=== PATIENT | female | born 1965 | race Two or more races ===

== ENCOUNTER 2017-11-16 14:45 | Outpatient (CLI) | payer OTHER | END 2017-11-16 23:59 | disposition home or self-care (01) | LOC: WOU 14:45 | PROVIDERS: ATTEND Surgery | DX: T81.89XA Other complications of procedures, not elsewhere classified, initial encounter (principal); E66.9 Obesity, unspecified; Z68.32 Body mass index [BMI] 32.0-32.9, adult; S39.92XA Unspecified injury of lower back, initial encounter; W19.XXXA Unspecified fall, initial encounter; I10 Essential (primary) hypertension; F41.8 Other specified anxiety disorders; S30.0XXS Contusion of lower back and pelvis, sequela; L98.412 Non-pressure chronic ulcer of buttock with fat layer exposed | CPT/HCPCS: 99205; A6402; G0463 ==

== ENCOUNTER 2021-03-12 18:10 | Emergency (ER) | payer OTHER ==
[~2021-03-12] VITALS: Ht 170.2 cm; Wt 97.1 kg
[2021-03-12] MEDS ORDERED: MECLIZINE HCL 25 MG TABLET ONE (18:22)
[2021-03-12] MEDS ORDERED: IV NS 0.9% 1,000 ML BAG IV ONE (18:30)
[2021-03-12] MEDS ORDERED: MECLIZINE HCL 12.5 MG TABLET PO ONE (18:30)
[2021-03-12 18:39] LABS: BASOPHILS # (AUTO) 0.1 K/uL (0.0-0.2); EOSINOPHILS % (AUTO) 1.1 % (0.0-6.0); HEMATOCRIT 47 % (33-45); HEMOGLOBIN 15.8 g/dL (11.5-14.8); LYMPHOCYTES # (AUTO) 4.6 K/uL (0.8-4.8); LYMPHOCYTES % (AUTO) 37.2 % (20.0-44.0); MEAN CORPUSCULAR HGB CONC 34 g/dl (31.0-36.0); MEAN CORPUSCULAR VOLUME 92 fL (82-100); MONOCYTES # (AUTO) 0.7 K/uL (0.1-1.30); MONOCYTES % (AUTO) 5.5 % (2.0-12.0); NEUTROPHILS # (AUTO) 6.9 K/uL (1.8-8.9); NEUTROPHILS % (AUTO) 55.2 % (43.0-81.0); PLATELET COUNT (AUTO) 524 K/uL (150-450); RED BLOOD CELL COUNT(AUTO) 5.14 MIL/uL (4.0-5.2); WHITE BLOOD COUNT (AUTO) 12.4 K/uL (4.3-11.0)
[2021-03-12 18:47] LABS: CALCIUM, SERUM 9.5 mg/dL (8.5-10.1); CARBON DIOXIDE 26 mmol/L (21-32); CHLORIDE 97 mmol/L (98-107); GLUCOSE 247 mg/dL (74-106); POTASSIUM 4.1 mmol/L (3.5-5.1); SODIUM SERUM 136 mmol/L (136-145); UREA NITROGEN, BLOOD 37 mg/dL (7-18)
--- NOTE | 2021-03-12 18:56 | NUR ---
Patient bibra, c/o dizziness. On room air, breathing evenly and unlabored. Connected to the monitor and pulse ox. kept comfortable, will continue to monitor accordingly.
[2021-03-12 20:06] LABS: ABG PCO2 39.9 mmHg (35.0-45.0); ABG PH 7.392 (7.350-7.450); ABG PO2 68.1 mmHg (75.0-100.0); AaDO2 33.9 mmHg; COHb 1.8 % (0.5-1.5); MetHb 0.3 % (0.0-1.5); SITE, ABG Right Radial; VENT MODE, BG ROOM AIR
[2021-03-12 20:45] VITALS: BP 115/61
== END 2021-03-12 20:46 | disposition home or self-care (01) ==
LOC: ER 18:15
DX: R55 Syncope and collapse (principal); F17.200 Nicotine dependence, unspecified, uncomplicated; I10 Essential (primary) hypertension; E11.9 Type 2 diabetes mellitus without complications
CPT/HCPCS: 36415; 36600 ×2; 70450; 71045; 80048; 82803; 84484; 85025; 93005; 96360; 99285; 99406; J7030; J8597